=== PATIENT | female | born 1960 | race African-American/Black ===

== ENCOUNTER → 2017-10-10 | Day surgery (SDC) | payer OTHER, BC ==
--- NOTE | 2017-10-11 18:19 | PATH ---
Cytology Non-Gynecological Report Patient Name: BEAN SALGUERO [facility]. Rec. #: [id number] /Age/Gender: 1960 (Age: 57) / F Account: [id number] Location: RADIOLOGY Taken: 10/10/2017 Received: 10/10/2017 Reported: 10/11/2017 Physicians: Gordy Walsh M.D. Specimen(s) Received THYROID FNA Clinical History Right thyroid nodule, 3.12 x 1.55 x 2.14 cm Final Diagnosis THYROID, RIGHT, FINE NEEDLE ASPIRATION: SATISFACTORY FOR EVALUATION. [place] CLASS II: BENIGN. CYTOLOGIC FINDINGS ARE CONSISTENT WITH A BENIGN FOLLICULAR NODULE. SMALL FOLLICULAR CELLS WITH REACTIVE CHANGES, MACROPHAGES, AND COLLOID PRESENT. Electronically Signed Yodit Gutiérrez M.D. Gross Description Received are eight direct smears, four of which are air-dried and Diff-Quik stained, and four of which are alcohol fixed and Pap stained. Also received is 20 ml of bloody formalin from which one cellblock is prepared.
== END | disposition home or self-care (01) ==
LOC: JRADIR 09:24
PROVIDERS: ATTEND Otolaryngology
PROC: 0G9H3ZX Drainage of Right Thyroid Gland Lobe, Percutaneous Approach, Diagnostic (ICD-10-PCS; principal; 2017-10-10)
DX: E04.1 Nontoxic single thyroid nodule (principal)
CPT/HCPCS: 76942; 88173; 88305-TC